=== PATIENT | female | born 1970 | race Caucasian/White ===

== ENCOUNTER 2020-12-04 05:48 | Emergency (ER) | payer OTHER ==
[~2020-12-04 05:48] MED LIST: ACETAMINOPHEN325 MG PO; BENTYL10 MG PO; CARAFATE S500 MG/TSP PO; CLEOCIN300 MG PO; DELTASONE20 MG PO; DUONEB 2.5-0.5M1 AMP INH; NORCO 5-325 TA1 EACH PO; PREDNISONE 20MG20 MG PO; PRILOSEC OTC20 MG PO; PROMETHEGA12.5 MG/SU PR; VENTOLIN HFA IN18 GM INH; ZOFRAN4 MG PO
[2020-12-04 06:33] LABS: BASOPHIL 0.8 % (0-2); EOSINOPHIL 6.6 % (0-5); HGB 9.1 g/dl (12.5-16.0); LYMPHOCYTE 39.8 % (15-48); MCHC 28.4 g/dL (32.0-36.0); MCV 77.3 fL (78.0-100.0); MONOCYTE 7.7 % (0-12); MPV 9.3 fL (6.0-9.5); NEUTROPHIL 44.7 % (41-80); NRBC 0; PLT 343 K/uL (150-400); RBC 4.14 M/uL (4.20-5.40); WBC 2.6 K/uL (4.0-10.5)
[2020-12-04 07:16] LABS: ALBUMIN 3.1 g/dL (3.4-5.0); BILIRUBIN - TOTAL 0.2 mg/dL (0.2-1.0); C-REACTIVE PROTEIN 0.2 mg/dL (<=0.90); CREATININE 0.71 mg/dL (0.51-0.95); POTASSIUM 3.7 mmol/L (3.5-5.1); TOTAL PROTEIN 7.1 g/dL (6.4-8.2)
[2020-12-04] MEDS ORDERED: ONDANSETRON ODT4 MG PO (08:55)
[2020-12-04] MEDS ORDERED: VENTOLIN HFA18 GM INH (08:55)
[2020-12-04] MEDS ORDERED: TESSALON PERLE100 M1 PO (08:55)
[2020-12-04] MEDS ORDERED: MEDROL 4MG DOSEP4 MG PO (08:55)
== END 2020-12-04 11:15 | disposition home or self-care (01) ==
LOC: FER 05:48
PROVIDERS: Emergency Medicine
DX: U07.1 COVID-19 (principal); I50.9 Heart failure, unspecified; J44.9 Chronic obstructive pulmonary disease, unspecified; Z23 Encounter for immunization; Z88.0 Allergy status to penicillin; Z88.6 Allergy status to analgesic agent
CPT/HCPCS: 36415; 71275; 80053; 82728; 83615; 84145; 84484; 85025; 85379; 86140; 93005; 94640; 94664; J2405; J2930; M0245; Q0245; Q9967; U0002

== ENCOUNTER 2020-12-12 17:32 | Inpatient (IN) | payer OTHER ==
[~2020-12-12] VITALS: Ht 165.1 cm; Wt 95.8 kg
[~2020-12-12 17:32] MED LIST changes: +MEDROL 4MG DOSEP4 MG PO; +ONDANSETRON ODT4 MG PO; +TESSALON PERLE100 M1 PO; +VENTOLIN HFA18 GM INH
[2020-12-12 19:55] LABS: BASOPHIL 0.2 % (0-2); EOSINOPHIL 0.1 % (0-5); HCT 30.5 % (37.0-47.0); HGB 8.8 g/dl (12.5-16.0); LYMPHOCYTE 6.6 % (15-48); MCH 22.2 pg (25.0-31.0); MCHC 28.9 g/dL (32.0-36.0); MPV 9.2 fL (6.0-9.5); NEUTROPHIL 88.6 % (41-80); NRBC 0; PLT 362 K/uL (150-400); RBC 3.96 M/uL (4.20-5.40); WBC 10.6 K/uL (4.0-10.5)
[2020-12-12 20:18] LABS: PRO-BNP 87 pg/mL (<125)
[2020-12-12 20:24] LABS: ALBUMIN 2.9 g/dL (3.4-5.0); BILIRUBIN - TOTAL 0.4 mg/dL (0.2-1.0); BUN/CREAT RATIO (CALC) 10.4 RATIO; CREATININE 0.67 mg/dL (0.51-0.95); GLOBULIN (CALCULATION) 4.3 g/dL; POTASSIUM 4.5 mmol/L (3.5-5.1); TOTAL PROTEIN 7.2 g/dL (6.4-8.2)
[2020-12-13 06:10] LABS: BASOPHIL 0.1 % (0-2); EOSINOPHIL 0 % (0-5); HCT 29.3 % (37.0-47.0); HGB 8.4 g/dl (12.5-16.0); LYMPHOCYTE 7.6 % (15-48); MCH 22.2 pg (25.0-31.0); MCHC 28.7 g/dL (32.0-36.0); MCV 77.5 fL (78.0-100.0); MONOCYTE 1.4 % (0-12); MPV 9.7 fL (6.0-9.5); NEUTROPHIL 89.4 % (41-80); NRBC 0; PLT 352 K/uL (150-400); RBC 3.78 M/uL (4.20-5.40); WBC 7.2 K/uL (4.0-10.5)
[2020-12-13 06:31] LABS: ALBUMIN 2.6 g/dL (3.4-5.0); ALKALINE PHOSHATASE 86 U/L (46-116); ALT <6 U/L (14-59); AST 7 U/L (15-37); BILIRUBIN - TOTAL 0.2 mg/dL (0.2-1.0); BUN 8 mg/dL (7-18); BUN/CREAT RATIO (CALC) 12.7 RATIO; CHLORIDE 104 mmol/L (98-107); CO2 (BICARBONATE) 27 mmol/L (21-32); CREATININE 0.63 mg/dL (0.51-0.95); GLOBULIN (CALCULATION) 4.1 g/dL; GLUCOSE 157 mg/dL (74-106); POTASSIUM 4.1 mmol/L (3.5-5.1); TOTAL PROTEIN 6.7 g/dL (6.4-8.2)
[2020-12-14 05:47] LABS: BASOPHIL 0.1 % (0-2); EOSINOPHIL 0 % (0-5); HCT 29.1 % (37.0-47.0); HGB 8.1 g/dl (12.5-16.0); LYMPHOCYTE 12.8 % (15-48); MCH 22.3 pg (25.0-31.0); MCHC 27.8 g/dL (32.0-36.0); MCV 79.9 fL (78.0-100.0); MONOCYTE 5.7 % (0-12); MPV 9.3 fL (6.0-9.5); NEUTROPHIL 80.2 % (41-80); NRBC 0; PLT 334 K/uL (150-400); RBC 3.64 M/uL (4.20-5.40); RDW 18.3 % (11.5-14.0); WBC 11.6 K/uL (4.0-10.5)
[2020-12-14 06:43] LABS: ALBUMIN 2.5 g/dL (3.4-5.0); BILIRUBIN - TOTAL 0.2 mg/dL (0.2-1.0); BUN/CREAT RATIO (CALC) 23.1 RATIO; CREATININE 0.65 mg/dL (0.51-0.95); GLOBULIN (CALCULATION) 3.8 g/dL; POTASSIUM 5.4 mmol/L (3.5-5.1); TOTAL PROTEIN 6.3 g/dL (6.4-8.2)
[2020-12-14] MEDS ORDERED: ELIQUIS5 MG PO (13:30)
== END 2020-12-14 14:44 | disposition home or self-care (01) | DRG 177 ==
LOC: FER 17:32 → FMS 22:08
PROVIDERS: Emergency Medicine Emergency Medical Services; Internal Medicine; Nurse Practitioner; ADMIT Allergy & Immunology Allergy
PROC: 8E0ZXY6 Isolation (ICD-10-PCS; principal; 2020-12-12)
PROC: XW033E5 Introduction of Remdesivir Anti-infective into Peripheral Vein, Percutaneous Approach, New Technology Group 5 (ICD-10-PCS; 2020-12-12)
DX: U07.1 COVID-19 (principal); I26.99 Other pulmonary embolism without acute cor pulmonale; J44.1 Chronic obstructive pulmonary disease with (acute) exacerbation; J44.0 Chronic obstructive pulmonary disease with (acute) lower respiratory infection; F17.210 Nicotine dependence, cigarettes, uncomplicated; Z79.51 Long term (current) use of inhaled steroids; Z88.0 Allergy status to penicillin; Z88.8 Allergy status to other drugs, medicaments and biological substances; Z90.49 Acquired absence of other specified parts of digestive tract; Z98.890 Other specified postprocedural states; Z82.5 Family history of asthma and other chronic lower respiratory diseases; Z80.41 Family history of malignant neoplasm of ovary; Z80.0 Family history of malignant neoplasm of digestive organs
CPT/HCPCS: 36415; 36600; 71275; 80053; 82728; 82803; 83880; 84484; 85025; 85379; 86140; 93005; 94640; 94664; 94760; 94762; C9399; J0696; J1100; J1650; J1885; J7050; J8540; Q9967; U0002

== ENCOUNTER 2020-12-16 09:52 | Emergency (ER) | payer OTHER ==
[~2020-12-16] VITALS: Ht 165.1 cm; Wt 99.3 kg
[~2020-12-16 09:52] MED LIST changes: +ELIQUIS5 MG PO
[2020-12-16 10:55] LABS: BASOPHIL 0.4 % (0-2); HCT 31.6 % (37.0-47.0); LYMPHOCYTE 27.9 % (15-48); MCH 23.3 pg (25.0-31.0); MCHC 28.5 g/dL (32.0-36.0); MCV 81.9 fL (78.0-100.0); MONOCYTE 4.4 % (0-12); MPV 9.4 fL (6.0-9.5); NRBC 0; PLT 417 K/uL (150-400); RBC 3.86 M/uL (4.20-5.40); WBC 10.4 K/uL (4.0-10.5)
[2020-12-16 11:00] LABS: INR 1.46 (0.9-1.2); PTT 32.6 SECONDS (24.4-34.7)
[2020-12-16 11:02] LABS: ALBUMIN 2.7 g/dL (3.4-5.0); BILIRUBIN - TOTAL 0.3 mg/dL (0.2-1.0); BUN/CREAT RATIO (CALC) 10.6 RATIO; CREATININE 0.94 mg/dL (0.51-0.95); GLOBULIN (CALCULATION) 3.8 g/dL; POTASSIUM 3.6 mmol/L (3.5-5.1); TOTAL PROTEIN 6.5 g/dL (6.4-8.2)
[2020-12-16] MEDS ORDERED: PREDNISONE 20MG20 MG PO (12:27)
== END 2020-12-16 12:50 | disposition home or self-care (01) ==
LOC: FER 09:52
PROVIDERS: Internal Medicine
DX: I26.99 Other pulmonary embolism without acute cor pulmonale (principal); J90 Pleural effusion, not elsewhere classified; J44.9 Chronic obstructive pulmonary disease, unspecified; D64.9 Anemia, unspecified; U07.1 COVID-19; Z88.0 Allergy status to penicillin; Z88.6 Allergy status to analgesic agent
CPT/HCPCS: 36415; 71275; 80053; 84484; 85025; 85610; 85730; 93005; 94640; 94664; 94762; J1100; Q9967

== ENCOUNTER 2021-07-26 05:40 | Emergency (ER) | payer OTHER ==
[2021-07-26 06:49] LABS: BASOPHIL 0.9 % (0-2); EOSINOPHIL 11.8 % (0-5); HCT 33.6 % (37.0-47.0); HGB 9.5 g/dl (12.5-16.0); LYMPHOCYTE 27.7 % (15-48); MCH 22.1 pg (25.0-31.0); MCHC 28.3 g/dL (32.0-36.0); MCV 78.3 fL (78.0-100.0); MONOCYTE 5.8 % (0-12); MPV 9.5 fL (6.0-9.5); NEUTROPHIL 53.4 % (41-80); NRBC 0; PLT 438 K/uL (150-400); RBC 4.29 M/uL (4.20-5.40); WBC 5.7 K/uL (4.0-10.5)
[2021-07-26 06:53] LABS: INR 1.24 (0.9-1.2); PROTHROMBIN TIME 14.9 SECONDS (11.8-13.4)
[2021-07-26 07:11] LABS: BILIRUBIN - TOTAL 0.3 mg/dL (0.2-1.0); BUN/CREAT RATIO (CALC) 6.5 RATIO; CREATININE 0.62 mg/dL (0.51-0.95)
[2021-07-26 07:34] LABS: INFLUENZA A NAA NEGATIVE (NEGATIVE)
[2021-07-26 07:37] LABS: CORONAVIRUS 2019 SARS-COV-2 POSITIVE (NEGATIVE)
[2021-07-26] MEDS ORDERED: ONDANSETRON ODT4 MG PO (09:05)
[2021-07-26] MEDS ORDERED: TESSALON PERLE100 MG PO (09:05)
[2021-07-26] MEDS ORDERED: PREDNISONE 20MG20 MG PO (09:05)
[2021-07-26] MEDS ORDERED: PAXLOVID CO-PA1 EAC1 PO ×3 (09:05→09:57)
== END 2021-07-26 10:01 | disposition home or self-care (01) ==
LOC: FER 05:40
PROVIDERS: Emergency Medicine
DX: U07.1 COVID-19 (principal); J44.9 Chronic obstructive pulmonary disease, unspecified; Z88.0 Allergy status to penicillin; Z88.6 Allergy status to analgesic agent; Z28.310 Unvaccinated for COVID-19
CPT/HCPCS: 36415; 70450; 71275; 80053; 84484; 85025; 85610; 93005; 94640; 94664; J2930; Q9967; U0002